=== PATIENT | male | born 1945 | race Caucasian/White ===

== ENCOUNTER 2018-03-19 15:04 | Emergency (ER) | payer OTHER ==
[~2018-03-19] VITALS: Ht 167.6 cm; Wt 81.6 kg
--- NOTE | 2018-03-19 15:04 | NUR ---
Patient BIBA BLS, transferred to bed 2. RN evaluating patient at bedside.
[2018-03-19 15:05] VITALS: BP 206/95
[2018-03-19] MEDS ORDERED: ATEN25TA2 PO (15:10)
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
[2018-03-19] MEDS ORDERED: KETOROLAC 60 MG/2 ML VIAL IM ONE (15:40)
--- NOTE | 2018-03-19 15:45 | NUR ---
PT TO XRAY VIA [facility]
--- NOTE | 2018-03-19 15:45 | NUR ---
Lula horan in EDM - 03/19/18 at 1558 by HECTOR PT TO XRAY VIA W/C [facility] NURSE PRACTITIONER
--- NOTE | 2018-03-19 15:56 | NUR ---
PATIENT BACK FROM RADIOLOGY VIA GURNEY.
--- NOTE | 2018-03-19 16:14 | NUR ---
pt to ct via nery accompanied by information tech
[2018-03-19] MEDS ORDERED: ONDANSETRON 4 MG ODT PO ONE (16:35)
[2018-03-19] MEDS ORDERED: MORPHINE SULFATE 4 MG/ML SYR IM ONE (16:35)
--- NOTE | 2018-03-19 17:29 | NUR ---
Crutches dispensed. Taught proper use, patient returned demo.
--- NOTE | 2018-03-19 17:35 | NUR ---
er md pereira by bedside re-evaluating patient and discussing discharge instructions. patient verbalized understanding.
--- NOTE | 2018-03-19 17:42 | NUR ---
Attempting to discharge patient; Son of patient asked to speak to ER md pereira regarding discharge instructions. Informed son that discharge instructions were discussed prior by er md pereira but if patient wants to wait er md pereira will be in as soon as he can. Patient and son agreed.
--- NOTE | 2018-03-19 18:02 | NUR ---
er md pereira by bedside explaining discharge instructions with richa chapman. son of patient became upset with richa chapman...stating "you are looking at us with disgusting look, etc."; Son started to raise his voice; Richa CHAPMAN removed herself from the situation; asked charge master specialist John to discharge patient
[2018-03-19 18:09] VITALS: BP 134/71
--- NOTE | 2018-03-19 18:09 | NUR ---
Patient discharged with v/s stable. Written and verbal after care instructions given and explained. Patient alert, oriented and verbalized understanding of instructions. Ambulatory with to car. All questions addressed prior to discharge. ID band removed. Patient advised to follow up with PMD. Rx of NAPROSYN, NORCO, MOTRIN given. Patient educated on indication of medication including possible reaction and side effects. Opportunity to ask questions provided and answered.
== END 2018-03-19 18:09 | disposition home or self-care (01) ==
LOC: MED 15:04
DX: S82.142A Displaced bicondylar fracture of left tibia, initial encounter for closed fracture (principal); S30.0XXA Contusion of lower back and pelvis, initial encounter; I10 Essential (primary) hypertension; Z79.899 Other long term (current) drug therapy; V03.99XA Pedestrian with other conveyance injured in collision with car, pick-up truck or van, unspecified whether traffic or nontraffic accident, initial encounter; Y93.01 Activity, walking, marching and hiking; Y92.480 Sidewalk as the place of occurrence of the external cause; Y99.8 Other external cause status
CPT/HCPCS: 29505; 72170; 72220; 73562; 73700; 96372; 99284; J1885; J2270; Q0162